=== PATIENT | male | born 1955 | race Caucasian/White ===

== ENCOUNTER 2022-10-23 06:45 | Emergency (ER) | payer MEDICARE ==
[~2022-10-23] VITALS: Ht 177.8 cm; Wt 99.8 kg
[2022-10-23] MEDS ORDERED: LORAZEPAM0.5 MG PO (08:07)
[2022-10-23] MEDS ORDERED: EUTHYROX50 MC1 PO (08:07)
[2022-10-23] MEDS ORDERED: Lisinopril2.5 MG (08:07)
[2022-10-23] MEDS ORDERED: Amoxicillin500 MG PO (08:47)
== END 2022-10-23 09:05 | disposition home or self-care (01) ==
LOC: ER 06:45
DX: K04.7 Periapical abscess without sinus (principal); E11.9 Type 2 diabetes mellitus without complications; I10 Essential (primary) hypertension; J44.9 Chronic obstructive pulmonary disease, unspecified; E78.5 Hyperlipidemia, unspecified; Z79.899 Other long term (current) drug therapy
CPT/HCPCS: A9270

== ENCOUNTER 2024-01-04 18:29 | Emergency (ER) | payer MEDICARE, OTHER ==
[~2024-01-04] VITALS: Ht 172.7 cm; Wt 98.4 kg
[~2024-01-04 18:29] MED LIST: ASPI81CH; Amoxicillin500 MG PO; Crestor20 MG; ESCI10; EUTHYROX50 MC1 PO; GLIM4; IBUP100S; LORAZEPAM0.5 MG PO; Lisinopril2.5 MG; METF500; OXYB5; PIOG30; TRAZ100
[2024-01-04] MEDS ORDERED: Lidocaine 2% Jelly Uro-Jet UR ONE (18:55)
[2024-01-04 19:42] LABS: Source, Urine Foley catheter
[2024-01-04 19:47] LABS: Appearance, Urine Hazy (Clear); Bilirubin, Urine Neg (Neg); Blood, Urine 5+ (Neg); Color, Urine Red (P-Yellow); Glucose Qualitative, Urine Neg (Neg); Ketones, Urine Neg (Neg); Leukocyte Esterase, Urine 2+ (Neg); Nitrite, Urine Pos (Neg); Protein, Urine 4+ (Neg); Specific Gravity, Urine 1.015 (1.003-1.022); Urobilinogen, Urine NORM (Normal)
[2024-01-04 19:54] LABS: Bacteria Many /hpf; Red Blood Cells, Urine TNTC /hpf (0-2); Squamous Epithelial Cells Few /hpf (Few)
[2024-01-04 20:01] VITALS: BP 146/76
[2024-01-04] MEDS ORDERED: Bactrim Ds Tab1 EACH PO (20:15)
[2024-01-04] MEDS ORDERED: Trimethoprim/Sulfamethoxazole DS Tab PO ONE (20:15)
== END 2024-01-04 20:24 | disposition home or self-care (01) ==
LOC: ER 18:29
PROVIDERS: Emergency Medicine
DX: N39.0 Urinary tract infection, site not specified (principal); I10 Essential (primary) hypertension; E11.9 Type 2 diabetes mellitus without complications; Z79.82 Long term (current) use of aspirin; Z79.84 Long term (current) use of oral hypoglycemic drugs; Z79.899 Other long term (current) drug therapy
CPT/HCPCS: 51702; 51798; 81001; 87077; 87086; 87186; 99283-25; A9270

== ENCOUNTER 2024-09-24 12:28 | Day surgery (SDC) | payer MEDICARE, OTHER ==
[~2024-09-24] VITALS: Ht 172.7 cm; Wt 109.5 kg
[~2024-09-24 12:28] MED LIST changes: +Bactrim Ds Tab1 EACH PO; +Balanced Salt Epinephrine Irrigation Solution 500 mL IR SCH; +Lidocaine HCl/Pf 1% 5 ML VIAL XX SCH; +Moxifloxacin HCL 0.5 MG/0.1 ML 0.4MLSYR RIGHTEYE SCH; +PHENYLEPHRINE\\TROPICAMIDE\\TETRACAINE OPHTHALMIC DILATING SOLN RIGHTEYE PRN; +Povidone-Iodine 450 DROP/30 ML Solution ONE; +Povidone-Iodine 450 DROP/30 ML Solution RIGHTEYE SCH; +Tetracaine HCl/Pf 0.5% Opth Soln 4 ml ONE
[2024-09-24] MEDS ORDERED: Diazepam 2 MG Tab ONE (13:02)
[2024-09-24] MEDS ORDERED: Diazepam 5 MG Tab ONE (13:03)
[2024-09-24] MEDS ORDERED: EUTHYROX100 MC1 (13:30)
[2024-09-24] MEDS ORDERED: DECARA1250 MC1 PO (13:32)
[2024-09-24] MEDS ORDERED: Aspir 8181 MG PO (13:33)
--- NOTE | 2024-09-24 13:50 | NUR ---
09/24/24 Reuben0 Jaki Ledezma 1315: PATIENT REPORTS ANXIETY OF 02/24 1318: DISCUSSED VALIUM ORDER WITH DR MINER OF ANESTHESIA BECAUSE PATIENT TOOK HIS HOME MEDICINE [facility] TODAY AT [address] MINER OK TO PROCEED WITH 7 MG PO VALIUM PER ORDERS. 1319: 7 MG PO VALIUM PER ORDERS 1349: REASSESSED ANXIETY, PER PATIENT ANXIETY IS 10/27
[2024-09-24 14:32] VITALS: BP 137/80
== END 2024-09-24 14:47 | disposition home or self-care (01) ==
LOC: ORSCSDS 12:28
PROVIDERS: Student in an Organized Health Care Education/Training Program
PROC: 08RJ3JZ Replacement of Right Lens with Synthetic Substitute, Percutaneous Approach (ICD-10-PCS; principal; 2024-09-24 14:00)
DX: E11.36 Type 2 diabetes mellitus with diabetic cataract (principal); H25.813 Combined forms of age-related cataract, bilateral; J44.9 Chronic obstructive pulmonary disease, unspecified; E78.5 Hyperlipidemia, unspecified; I12.9 Hypertensive chronic kidney disease with stage 1 through stage 4 chronic kidney disease, or unspecified chronic kidney disease; E11.22 Type 2 diabetes mellitus with diabetic chronic kidney disease; N18.9 Chronic kidney disease, unspecified; F41.9 Anxiety disorder, unspecified; Z87.891 Personal history of nicotine dependence; Z79.82 Long term (current) use of aspirin; Z79.84 Long term (current) use of oral hypoglycemic drugs; Z79.899 Other long term (current) drug therapy
CPT/HCPCS: 82947; A9270; V2632